=== PATIENT | male | born 1975 | race Caucasian/White ===

== ENCOUNTER 2017-08-09 05:55 | Inpatient (IN) | payer OTHER ==
[~2017-08-09] VITALS: Ht 182.9 cm; Wt 73.6 kg
[~2017-08-09 05:55] MED LIST: CeFAZolin 2 GM/DEXTROSE 50 ML IV ONE; RINGERS SOLUTION,LACTATED 1,000 ML IV ONE
[2017-08-09] MEDS ORDERED: PROPOFOL 1000 MG/ISO-OSM 200 ML IV ONE (06:43)
[2017-08-09] MEDS ORDERED: ACETAMINOPHEN 1000 MG/ISO-OSM 100 ML IV ONE (06:43)
[2017-08-09] MEDS ORDERED: SODIUM CHLORIDE 0.9% 250 ML IV ONE (06:51)
[2017-08-09] MEDS ORDERED: GELATIN SPONGE,ABSORBABLE 100 MM TP ONE (06:51)
[2017-08-09] MEDS ORDERED: SODIUM CHLORIDE 0.9% 20 ML ONE (06:51)
[2017-08-09] MEDS ORDERED: THROMBIN, BOVINE 20000 UNITS/VIAL POWDER TP ONE (06:52)
[2017-08-09] MEDS ORDERED: BACITRACIN 50,000 UNITS/VIAL ONE (06:52)
[2017-08-09] MEDS ORDERED: CeFAZolin 2 GM/DEXTROSE 50 ML IV ONE (07:00)
[2017-08-09] MEDS ORDERED: ALBUTEROL SULFATE 2.5 MG/0.5 ML NEB SOLUTION NEB ONE ×2 (07:00→07:17)
[2017-08-09] MEDS ORDERED: IPRATROPIUM BROMIDE 0.5 MG/2.5 ML NEB SOLUTION NEB ONE (07:17)
[2017-08-09] MEDS ORDERED: RINGERS SOLUTION,LACTATED 1,000 ML IV ONE (08:10)
[2017-08-09] MEDS ORDERED: HYDROmorphone 2 MG/ML SYRINGE IVP PRN (09:15)
[2017-08-09] MEDS ORDERED: MEPERIDINE-PF 25 MG/ML SYRINGE IVP PRN (09:15)
[2017-08-09] MEDS ORDERED: FentaNYL CITRATE-PF 100 MCG/2 ML VIAL IVP PRN (09:15)
[2017-08-09] MEDS ORDERED: ZOLPIDEM TARTRATE 10 MG TABLET PO PRN (09:15)
[2017-08-09] MEDS: CYCLOBENZAPRINE HCL 10 MG TABLET PO SCH ×2 (09:15→19:57)
[2017-08-09] MEDS ORDERED: OXYGEN THERAPY IH SCH (09:15)
[2017-08-09] MEDS: ACETAMINOPHEN 1000 MG/ISO-OSM 100 ML IV SCH ×2 (09:15→16:57)
[2017-08-09] MEDS ORDERED: BUPIVACAINE LIPOSOME/PF 1.3%-13.3MG/ML SUSPENSION 20 ML VIAL INJ ONE (09:15)
[2017-08-09] MEDS ORDERED: LIDOCAINE HCL/PF 2% 5 ML VIAL INJ ONE (12:00)
[2017-08-09] MEDS ORDERED: ONDANSETRON HCL 4 MG/2 ML VIAL IVP PRN (12:00)
[2017-08-09] MEDS ORDERED: EPHEDrine SULFATE 50 MG/ML VIAL IM ONE (12:00)
[2017-08-09] MEDS ORDERED: METOCLOPRAMIDE HCL 5 MG/ML 2 ML VIAL IVP ONE (12:00)
[2017-08-09] MEDS ORDERED: ACETAMINOPHEN 325 MG TABLET PO PRN (12:00)
[2017-08-09] MEDS ORDERED: HYDROmorphone 2 MG/ML SYRINGE IVP ONE (12:00)
[2017-08-09] MEDS ORDERED: ONDANSETRON HCL 4 MG/2 ML VIAL IVP ONE (12:00)
[2017-08-09] MEDS ORDERED: KETAMINE HCL 50 MG/ML 10 ML VIAL IVP ONE (12:00)
[2017-08-09] MEDS ORDERED: SUCCINYLCHOLINE CHLORIDE 20 MG/ML 10 ML VIAL IVP ONE (12:00)
[2017-08-09] MEDS ORDERED: NEOSTIGMINE METHYLSULFATE 1 MG/ML 10 ML VIAL IVP ONE (12:00)
[2017-08-09] MEDS ORDERED: PROPOFOL 1% 20 ML VIAL IVP ONE (12:00)
[2017-08-09] MEDS ORDERED: DEXAMETHASONE SOD PHOS 4 MG/ML VIAL IVP ONE (12:00)
[2017-08-09] MEDS ORDERED: MAG HYDROX/AL HYDROX/SIMETH 30 ML SUSP UDCUP PO PRN (12:00)
[2017-08-09] MEDS ORDERED: MIDAZOLAM HCL 2 MG/2 ML VIAL IVP ONE (12:00)
[2017-08-09] MEDS ORDERED: FentaNYL CITRATE-PF 100 MCG/2 ML VIAL IVP ONE (12:00)
[2017-08-09] MEDS ORDERED: GLYCOPYRROLATE 0.2 MG/ML VIAL IM ONE (12:00)
[2017-08-09 12:10] VITALS: BP 124/69
[2017-08-09] MEDS ORDERED: HYDROmorphone 2 MG/ML SYRINGE ONE (12:32)
[2017-08-09] MEDS: HYDROmorphone 2 MG/ML SYRINGE IVP PRN ×2 (14:20→19:53)
[2017-08-09] MEDS ORDERED: INFLUENZA VIRUS VACCINE QVS 2017-18 (3YR+)/PF 60 MCG/0.5 ML SYRINGE IM ONE (15:45)
[2017-08-09] MEDS ORDERED: SODIUM CHLORIDE 0.9% 0 ML IV ONE (16:01)
[2017-08-09] MEDS: RINGERS SOLUTION,LACTATED 1,000 ML IV SCH (16:07)
[2017-08-09] MEDS: CeFAZolin 1 GM/DEXTROSE 50 ML IV SCH (16:08)
[2017-08-09 16:17] VITALS: BP 122/66
[2017-08-09 19:42] VITALS: BP 131/70
[2017-08-09] MEDS: DOCUSATE SODIUM 100 MG CAPSULE PO SCH (19:57)
[2017-08-09] MEDS: OXYGEN THERAPY IH SCH (20:00)
[2017-08-09] MEDS: DIAZEPAM 5 MG TABLET PO PRN (22:46)
[2017-08-10] VITALS (7 sets, daily range): BP systolic 122–140; BP diastolic 58–82
[2017-08-10] MEDS: CeFAZolin 1 GM/DEXTROSE 50 ML IV SCH (00:20)
[2017-08-10] MEDS: HYDROmorphone 2 MG/ML SYRINGE IVP PRN ×6 (00:33→23:19)
[2017-08-10] MEDS: ACETAMINOPHEN 1000 MG/ISO-OSM 100 ML IV SCH ×2 (01:19→09:30)
[2017-08-10] MEDS: RINGERS SOLUTION,LACTATED 1,000 ML IV SCH ×2 (04:15→06:28)
[2017-08-10 06:20] LABS: BASOPHILS % (AUTO) 0.1 % (0.0-2.0); EOSINOPHILS % (AUTO) 0.1 % (1.0-6.0); HEMATOCRIT 42.4 % (41-53); HEMOGLOBIN 14.2 g/dL (13.5-17.5); LYMPHOCYTES # (AUTO) 1.6 K/uL (1.0-4.8); LYMPHOCYTES % (AUTO) 13.6 % (22.0-44.0); MEAN CORPUSCULAR HEMOGLOBIN 32.5 pg (26.0-34.0); MEAN CORPUSCULAR HGB CONC 33.4 G/dL (31.0-37.0); MEAN CORPUSCULAR VOLUME 97 fL (80-100); MONOCYTES % (AUTO) 8.1 % (2.0-9.0); NEUTROPHILS # (AUTO) 9.3 K/uL (1.8-7.7); NEUTROPHILS % (AUTO) 78.1 % (40.0-70.0); PLATELET COUNT (AUTO) 169 K/uL (150-450); RED BLOOD CELL COUNT(AUTO) 4.37 MIL/uL (4.50-5.90); RED CELL DISTRIBUTION WIDTH 13.4 % (11.5-14.5)
[2017-08-10 06:42] LABS: ANION GAP 6 mmol/L (8-16); CALCIUM, TOTAL 8.8 mg/dL (8.8-10.5); CARBON DIOXIDE 30 mmol/L (22-29); CHLORIDE 105 mmol/L (98-107); CREATININE 1.06 mg/dL (0.60-1.30); GLOMERULAR FILTR. RATE CALC > 60 mL/min (>60); POTASSIUM 4.1 mmol/L (3.5-5.1); SODIUM SERUM 141 mmol/L (136-145); UREA NITROGEN, BLOOD 10 mg/dL (7-18)
[2017-08-10] MEDS: OXYGEN THERAPY IH SCH (08:00)
[2017-08-10] MEDS: DOCUSATE SODIUM 100 MG CAPSULE PO SCH ×2 (08:24→20:21)
[2017-08-10] MEDS: CYCLOBENZAPRINE HCL 10 MG TABLET PO SCH ×2 (08:25→20:21)
[2017-08-10] MEDS: DIAZEPAM 5 MG TABLET PO PRN (23:19)
[2017-08-11] MEDS: RINGERS SOLUTION,LACTATED 1,000 ML IV SCH (04:15)
[2017-08-11 05:01] VITALS: BP 122/56
[2017-08-11] MEDS: OXYGEN THERAPY IH SCH ×2 (08:00→20:00)
[2017-08-11 08:05] VITALS: BP 124/69
[2017-08-11] MEDS: CYCLOBENZAPRINE HCL 10 MG TABLET PO SCH ×2 (08:11→19:45)
[2017-08-11] MEDS: HYDROmorphone 2 MG/ML SYRINGE IVP PRN ×2 (08:11→19:44)
[2017-08-11] MEDS: DOCUSATE SODIUM 100 MG CAPSULE PO SCH ×2 (08:11→19:45)
[2017-08-11] MEDS: OxyCODONE HCL/ACETAMINOPHEN 5-325 MG TABLET PO PRN ×4 (11:31→23:15)
[2017-08-11 12:00] VITALS: BP 105/62
[2017-08-11 16:33] VITALS: BP 119/75
[2017-08-11 19:54] VITALS: BP 120/74
[2017-08-11 23:19] VITALS: BP 127/68
[2017-08-12] MEDS: OxyCODONE HCL/ACETAMINOPHEN 5-325 MG TABLET PO PRN ×3 (02:08→11:14)
[2017-08-12] MEDS: DIAZEPAM 5 MG TABLET PO PRN (02:16)
[2017-08-12 04:54] VITALS: BP 100/60
[2017-08-12 07:25] VITALS: BP 126/82
[2017-08-12] MEDS: HYDROmorphone 2 MG/ML SYRINGE IVP PRN (07:25)
[2017-08-12] MEDS: CYCLOBENZAPRINE HCL 10 MG TABLET PO SCH (08:24)
[2017-08-12] MEDS: DOCUSATE SODIUM 100 MG CAPSULE PO SCH (08:25)
[2017-08-12] MEDS ORDERED: OXYC-43 PO (09:25)
[2017-08-12] MEDS ORDERED: CYCL-309 PO (09:26)
[2017-08-12] MEDS ORDERED: CYCL10 PO (09:28)
[2017-08-12 11:10] VITALS: BP 128/78
[2017-08-12 12:00] VITALS: BP 119/74
== END 2017-08-12 13:00 | disposition home or self-care (01) | DRG 460 ==
LOC: 4E 05:55
PROVIDERS: ADMIT Neurological Surgery; ATTEND Neurological Surgery
PROC: 0SB20ZZ Excision of Lumbar Vertebral Disc, Open Approach (ICD-10-PCS; 2017-08-09)
PROC: 0SB40ZZ Excision of Lumbosacral Disc, Open Approach (ICD-10-PCS; 2017-08-09)
PROC: 0SG30AJ Fusion of Lumbosacral Joint with Interbody Fusion Device, Posterior Approach, Anterior Column, Open Approach (ICD-10-PCS; 2017-08-09)
PROC: 4A11X4G Monitoring of Peripheral Nervous Electrical Activity, Intraoperative, External Approach (ICD-10-PCS; 2017-08-09)
PROC: 0SG00AJ Fusion of Lumbar Vertebral Joint with Interbody Fusion Device, Posterior Approach, Anterior Column, Open Approach (ICD-10-PCS; principal; 2017-08-09 08:26)
DX: M51.16 Intervertebral disc disorders with radiculopathy, lumbar region (principal); M51.17 Intervertebral disc disorders with radiculopathy, lumbosacral region
CPT/HCPCS: 86850; 86900; 86901; 86920; 87081; 88304; 88311; 93005; 94640; 97116; 97140; 97161; 97165; 97530; 97535; C1713; C9290; J0131; J0330; J0690; J1030; J1100; J1170; J2250; J2405; J2704; J2765; J3010; J3490; J7040; J7050; J7120